=== PATIENT | male | born 1985 | race Two or more races ===

== ENCOUNTER 2023-10-26 17:25 | Emergency (ER) | payer OTHER, SELFPAY ==
[2023-10-26 17:31] VITALS: BP 180/92
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
[2023-10-26 17:36] VITALS: BMI 21.1
[2023-10-26] MEDS: NSS 1000 IV (17:43)
[2023-10-26 17:46] LABS: % Basophils 0.5 % (0-2); % Eosinophils 0.2 % (0-6); % Immature Granulocytes 0.3 % (0-0.5); % Monocytes 8.4 % (1.7-9.3); % Neutrophils 49.6 % (42.2-75.2); Absolute Lymphocytes 2.4 10^3/uL (1.2-3.4); Absolute Monocytes 0.5 10^3/uL (0.1-0.6); Absolute Neutrophils 2.9 10^3/uL (1.4-6.5); Hematocrit 40.2 % (39.0-52.0); Hemoglobin 14.8 g/dL (13.0-18.0); Mean Corp Hgb Conc. 36.8 g/dL (33.0-37.0); Mean Corpuscular Hgb 28.5 pg (27.0-31.0); Mean Corpuscular Volume 77.3 fL (80.0-94.0); Mean Platelet Volume 8.7 fL (7.4-10.4); Nucleated Red Blood Cells % 0 % (-); Platelet Count 234 10^3/uL (130-400); Red Cell Dist. Width 14.1 % (11.5-14.5); White Blood Cell Count 5.9 10^3/uL (4.8-10.8)
[2023-10-26] MEDS: TORADOL 15 MG IV (17:54)
[2023-10-26] MEDS: OMNIPAQUE 50 ML PO (17:58)
[2023-10-26 18:04] LABS: ALT (SGPT) 20 U/L (0-50); AST (SGOT) 34 U/L (17-59); Alkaline Phosphatase 58 U/L (38-126); Blood Urea Nitrogen 12 mg/dl (9-20); Calcium 9.6 mg/dl (8.4-10.2); Carbon Dioxide 31 mmol/L (22-30); Chloride 101 mmol/L (98-107); Estimated Creatinine Clearance 97 ml/min; Glucose 71 mg/dl (70-99); Lipase 68 U/L (23-300); Sodium 138 mmol/L (135-145); Total Bilirubin 0.8 mg/dl (0.2-1.3); Total Protein 7.8 g/dl (6.3-8.2); eGFR > 60.00
[2023-10-26] MEDS: DILAUDID 1 MG IV (18:45)
[2023-10-26 19:00] VITALS: BP 140/96
[2023-10-26 20:19] VITALS: BP 125/86
[2023-10-26 21:00] VITALS: BP 119/88
[2023-10-26 22:00] VITALS: BP 131/80
[2023-10-26] MEDS: CITROMA 300 ML PO (22:24)
[2023-10-26 23:00] VITALS: BP 128/87
== END 2023-10-26 23:40 ==
LOC: EMR 17:25
PROVIDERS: EMERGENCY PHYSICIAN Emergency Medicine
DX: K43.2 Incisional hernia without obstruction or gangrene (principal); R33.9 Retention of urine, unspecified; K59.00 Constipation, unspecified; F43.10 Post-traumatic stress disorder, unspecified; F32.A Depression, unspecified
CPT/HCPCS: 99284; 96374; 96375; 96361; 74177; 80053; 83690; 85025; Q9967

== ENCOUNTER 2023-10-27 02:35 | Emergency (ER) | payer OTHER, SELFPAY ==
[2023-10-27 02:36] VITALS: BP 139/97; BMI 21.3
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
[2023-10-27] MEDS: DULCOLAX 10 MG PO (03:56)
== END 2023-10-27 05:00 ==
LOC: EMR 02:35
PROVIDERS: EMERGENCY PHYSICIAN Emergency Medicine
DX: Z46.6 Encounter for fitting and adjustment of urinary device (principal); K59.09 Other constipation; R10.9 Unspecified abdominal pain; R33.9 Retention of urine, unspecified; F43.10 Post-traumatic stress disorder, unspecified; F32.A Depression, unspecified
CPT/HCPCS: 99282